=== PATIENT | female | born 1955 | race Caucasian/White ===

== ENCOUNTER 2021-01-27 12:36 | Outpatient (CLI) | payer OTHER ==
[~2021-01-27 12:36] MED LIST: CLORAZEPATE D3.75 MG; HYDROCHLOROTHIA25 MG; METFORMIN HCL500 MG; QVAR7.3 G1 IH; VASOTEC10 MG; ZYNCOF 20-400120 ML PO
== END 2021-01-27 12:37 | disposition home or self-care (01) ==
LOC: NUCLEAR 12:36
DX: M19.90 Unspecified osteoarthritis, unspecified site (principal); M81.0 Age-related osteoporosis without current pathological fracture